=== PATIENT | male | born 1985 | race African-American/Black ===

== ENCOUNTER 2023-09-11 17:37 | Emergency (ER) | payer SELFPAY ==
[~2023-09-11] VITALS: Ht 175.3 cm; Wt 81.0 kg
[2023-09-11] MEDS ORDERED: CEPHALEXIN MONOHYDRATE 500 MG CAPSULE PO ONE (20:45)
[2023-09-11] MEDS ORDERED: PERTUSS(ACELL),DIPH,TET VAC/PF 0.5 ML SYRINGE IM. ONE (20:45)
[2023-09-11 23:05] VITALS: BP 116/72; PULSE 90; RESP 16; TEMP 98.3
[2023-09-11] MEDS ORDERED: CEPH-558 PO (23:05)
== END 2023-09-11 23:08 | disposition home or self-care (01) ==
LOC: EMS 17:39
DX: S56.128A Laceration of flexor muscle, fascia and tendon of left little finger at forearm level, initial encounter (principal); W26.0XXA Contact with knife, initial encounter; Y93.89 Activity, other specified; Y92.89 Other specified places as the place of occurrence of the external cause; Y99.8 Other external cause status
CPT/HCPCS: 12001; 90471; 90715; 99283